=== PATIENT | male | born 1985 | race Caucasian/White ===

== ENCOUNTER 2019-07-06 03:06 | Emergency (ER) | payer OTHER ==
[2019-07-06] MEDS ORDERED: predniSONE 50 MG TAB ONE (03:30)
== END 2019-07-06 04:16 | disposition home or self-care (01) ==
LOC: EC 03:06
DX: G51.0 Bell's palsy (principal)
CPT/HCPCS: 99283; J7512

== ENCOUNTER 2020-08-09 07:59 | Emergency (ER) | payer OTHER ==
[2020-08-09 08:07] VITALS: BP 124/76; PULSE 84; RESP 18; TEMP 97.6
--- NOTE | 2020-08-09 08:21 | ED ---
General Adult HPI - General Chief complaint: Extremity Injury, Upper Stated complaint: Right hand pain Time Seen by Provider: 08/09/20 08:09 Source: patient Mode of arrival: ambulatory Limitations: no limitations - History of Present Illness Initial comments: Dictation was produced using [employer] dictation software. please excuse any grammatical, word or spelling errors. This patient was cared for during a federal and state declared state of emergency secondary to Covid 19 Chief Complaint: 34-year-old male presents with right hand numbness and tingling History of Present Illness: 34-year-old male presents to the emergency department for carpal tunnel symptoms. He spoke with his family member who convinced him that his symptoms are significant for carpal tunnel syndrome of his right wrist. He works as a residential door installer. He states that his symptoms have been much worse over the last 3-4 days. Patient complains of symptoms to his first 3 digits and lateral half of his fourth digit. The ROS documented in this emergency department record has been reviewed and confirmed by me. Those systems with pertinent positive or negative responses have been documented in the HPI. All other systems are other negative and/or noncontributory. PHYSICAL EXAM: General Impression: Alert and oriented x3, not in acute distress HEENT: Normocephalic atraumatic, extra-ocular movements intact, pupils equal and reactive to light bilaterally, mucous membranes moist. Cardiovascular: Heart regular rate and rhythm Chest: Able to complete full sentences, no retractions, no tachypnea Abdomen: abdomen soft, non-tender, non-distended, no organomegaly Musculoskeletal: Pulses present and equal in all extremities, no peripheral edema Motor: no focal deficits noted Right upper extremity: Positive Tinel's sign Neurological: CN II-XII grossly intact, no focal motor or sensory deficits noted Skin: Intact with no visualized rashes Psych: Normal affect and mood ED course: 34 y Old male presents with clinical presentation consistent with carpal tunnel syndrome. As upon arrival are within acceptable limits. Patient given outpatient referral to orthopedic surgery. Work note provided. He is told to rest his right wrist. He ordered a splint and treatment of his carpal tunnel. - Related Data Allergies Allergy/AdvReac Type Severity Reaction Status Date / Time No Known Allergies Allergy Verified 08/09/20 08:07 Review of Systems ROS Statement: Those systems with pertinent positive or pertinent negative responses have been documented in the HPI. ROS Other: All systems not noted in ROS Statement are negative. Past Medical History Past Medical History: Atrial Fibrillation Additional Past Medical History / Comment(s): spontanious pneumo. History of Any Multi-Drug Resistant Organisms: None Reported Additional Past Surgical History / Comment(s): oral. Past Psychological History: No Psychological Hx Reported Smoking Status: Current every day smoker Past Alcohol Use History: Rare Past Drug Use History: Marijuana General Exam Limitations: no limitations Course Vital Signs 08/09/20 08:01 Temperature 97.6 F Pulse Rate 84 Respiratory 18 Rate Blood Pressure 124/76 O2 Sat by Pulse 100 Oximetry Disposition Clinical Impression: Carpal tunnel syndrome of right wrist Disposition: HOME SELF-CARE Condition: Good Instructions (If sedation given, give patient instructions): Carpal Tunnel Surgery (DC) Is patient prescribed a controlled substance at d/c from ED?: No Referrals: Juan Das DO [Doctor of Osteopathic Medicine] - 1-2 days Time of Disposition: 08:20
== END 2020-08-09 08:58 | disposition home or self-care (01) ==
LOC: EC 07:59
DX: G56.01 Carpal tunnel syndrome, right upper limb (principal); F17.200 Nicotine dependence, unspecified, uncomplicated
CPT/HCPCS: 99283

== ENCOUNTER → 2020-08-15 | Outpatient (CLI) | payer OTHER ==
--- NOTE | 2020-08-15 17:13 | XR ---
EXAMINATION TYPE: XR wrist complete RT DATE OF EXAM: 08/15/2020 COMPARISON: NONE HISTORY: Pain and numbness TECHNIQUE: 4 views FINDINGS: Carpal bones are intact. I see no fracture nor dislocation. Joint spaces are normal. Metaca rpals are intact. IMPRESSION: Negative right wrist exam. No fracture.
--- NOTE | 2020-08-15 17:21 | XR ---
EXAMINATION TYPE: XR hand complete RT DATE OF EXAM: 08/15/2020 COMPARISON: NONE HISTORY: Pain and numbness TECHNIQUE: 3 views FINDINGS: Metacarpals are intact. I see no fracture nor dislocation. Joint spaces are normal. IMPRESSION: Negative right hand exam. No fracture.
== END | disposition home or self-care (01) ==
LOC: RADXRMAIN 15:18
PROVIDERS: ATTEND Emergency Medicine
DX: S66.011A Strain of long flexor muscle, fascia and tendon of right thumb at wrist and hand level, initial encounter (principal); R20.9 Unspecified disturbances of skin sensation

== ENCOUNTER → 2020-12-21 | Outpatient (CLI) | payer OTHER ==
[2020-12-21 14:56] LABS: Appearance,Urine Clear (Clear); Bilirubin,Urine Negative (Negative); Blood,Urine Negative (Negative); Color,Urine Yellow; Glucose,Urine (UA) Negative (Negative); Ketones,Urine Negative (Negative); Leukocyte Esterase,Urine Negative (Negative); Nitrite,Urine Negative (Negative); PH, Urine 5.5 (5.0-8.0); Protein,Urine Trace (Negative); Specific Gravity,Urine 1.026 (1.001-1.035)
--- NOTE | 2020-12-21 15:19 | XR ---
EXAMINATION TYPE: XR chest 2V DATE OF EXAM: 12/21/2020 COMPARISON: NONE HISTORY: J44.9 COPD TECHNIQUE: Frontal and lateral views of the chest are obtained. FINDINGS: There is no focal air space opacity. Large upper lobe emphysematous bulla noted. Smaller left apical emphysematous bulla seen. The cardiac silhouette size is within normal limits. The osseous structures are grossly intact. IMPRESSION: 1. Large upper lobe emphysematous bulla noted. Smaller left apical emphysematous bulla seen.
--- NOTE | 2020-12-21 15:53 | XR ---
EXAMINATION TYPE: XR Hip Complete RT DATE OF EXAM: 12/21/2020 CLINICAL HISTORY: pain TECHNIQUE: AP and frogleg views of the right hip are obtained. COMPARISON: None. FINDINGS: There is no acute fracture/dislocation evident. The joint space appears within normal li mits. The overlying soft tissue appears unremarkable. IMPRESSION: 1. There is no acute fracture or dislocation. ICD 10 NO FRACTURE, INITIAL EVALUATION
[2020-12-21 23:43] LABS: Basophils # (A) 0.03 X 10*3/uL (0.00-0.10); Basophils % (A) 0.4 %; Eosinophils # (A) 0.34 X 10*3/uL (0.04-0.35); Eosinophils % (A) 4.9 %; HCT 43.4 % (39.6-50.0); HGB 14.1 g/dL (13.0-17.0); Lymphocytes # (A) 1.68 X 10*3/uL (0.90-5.00); MCH 30.8 pg (27.0-32.0); MCHC 32.5 g/dL (32.0-37.0); MCV 94.8 fL (80.0-97.0); Mean Platelet Volume 10.6 fL (9.5-12.2); Monocytes # (A) 0.45 X 10*3/uL (0.20-1.00); Monocytes % (A) 6.4 %; Neutrophils # (A) 4.48 X 10*3/uL (1.80-7.70); Platelet Count 211 X 10*3/uL (140-440); RBC 4.58 X 10*6/uL (4.40-5.60); RDW 12.2 % (11.5-14.5)
[2020-12-22 03:06] LABS: Albumin 4.6 g/dL (3.80-4.90); Albumin/Globulin Ratio 2.19 (1.60-3.17); Anion Gap 5.4 mmol/L (4.00-12.00); BUN/Creat Ratio 13.33 Ratio (12.00-20.00); Calcium 8.9 mg/dL (8.7-10.3); Carbon Dioxide 27.6 mmol/L (21.6-31.8); Chol/HDL Ratio 4.38; Globulin 2.1 g/dL (1.6-3.3); LDL Cholesterol,Calculated 97.6 mg/dL (0.0-131.0); Non-African American GFR(CKD) 108.7 (60.0-200.0); Potassium 4.5 mmol/L (3.5-5.5); Total Bilirubin 0.8 mg/dL (0.2-1.2); Total Protein 6.7 g/dL (6.2-8.2); VLDL Calculation 27.4 mg/dL (5.00-40.00)
[2020-12-22 03:40] LABS: INR 0.9 (0.90-1.11); Partial Thromboplastin Time 28.4 sec (23.5-31.0); Prothrombin Time 9.9 sec (9.9-11.9)
== END | disposition home or self-care (01) ==
LOC: LABWHC1 14:32
PROVIDERS: ATTEND Family Medicine
DX: Z01.818 Encounter for other preprocedural examination (principal); Z13.220 Encounter for screening for lipoid disorders; I48.0 Paroxysmal atrial fibrillation; J44.9 Chronic obstructive pulmonary disease, unspecified; M25.551 Pain in right hip
CPT/HCPCS: 36415; 71046; 73502; 80053; 80061; 81003; 84443; 85025; 85610; 85730